=== PATIENT | male | born 1950 | race Caucasian/White ===

== ENCOUNTER 2023-07-29 12:26 | Emergency (ER) | payer MEDICARE, SELFPAY ==
--- NOTE | ~2023-07-29 | US_ITS ---
EXAMINATION: US venous doppler [facility] DATE: 07/29/2023 14:19 INDICATION: Left lower limb pain. TECHNIQUE: Grayscale ultrasound images without and with compression and Doppler ultrasound images of the left lower extremity veins were obtained. COMPARISON: None. FINDINGS: The visualized portions of left common femoral vein, profunda (deep) femoral vein, femoral vein, popl iteal vein, peroneal veins, posterior tibial veins, and greater saphenous vein outflow are patent. IMPRESSION: 1. No deep venous thrombosis. Reviewed, dictated and finalized at location E.
--- NOTE | ~2023-07-29 | XR_ITS ---
EXAMINATION: XR knee LT 3V DATE: 07/29/2023 13:38 INDICATION: Left knee pain. TECHNIQUE: 3 views of left knee were obtained. COMPARISON: None. FINDINGS: Bone alignment is normal. No fracture. There is mild tricompartmental osteoarthritis. No kn ee joint effusion. IMPRESSION: 1. Mild left knee osteoarthritis. Reviewed, dictated and finalized at location E.
[2023-07-29 12:27] VITALS: BP 125/75; PULSE 79; RESP 16; TEMP 36.4; O2SAT 100
[2023-07-29 13:30] VITALS: BP 128/68; PULSE 72; RESP 16; TEMP 36.8; O2SAT 98
[2023-07-29 14:30] VITALS: BP 120/76; PULSE 68; RESP 16; TEMP 36.6; O2SAT 100
--- NOTE | 2023-07-29 16:46 | ED.EXTPRO ---
HPI - Extremity Problem General Chief complaint: Extremity Problem,Nontraumatic Stated complaint: r/o dvt to LLQ Time Seen by Provider: 07/29/23 12:40 History of Present Illness HPI Narrative: Patient reports some pain to the back of his left thigh that extends down his knee, denies any recent injuries that he can think of, other than that recently he did mow the lawn for the 1st time in a while. He states that he had been on a car ride yesterday for about an hour when he got out of the car and tried to walk, the pain was quite severe. No significant pain when he at rest, but he does start having more pain when he is walking, though this pain does relieve itself after walking for a while. He is generally quite active. history of AFib not on blood thinners. Review of Systems Review of Systems: CONST: No fever. HEENT: No sore throat C/V: No chest pain RESP: No cough GI: no abdominal pain : No dysuria. M/S: Left leg pain SKIN: No rash. NEURO: [No headache or focal numbness or weakness] PSYCH: [No depression] Exam Narrative: EXAMINATION OF ORGAN SYSTEMS/BODY AREAS: Constitutional: Vital signs per nursing GENERAL:[No acute distress, non-toxic appearing.] HEAD: Normal with no signs of head trauma. EYES: EOMI, conjunctiva normal ENT: Hearing grossly intact LUNGS: Nonlabored breathing. HEART: [Regular rate and rhythm]. Strong bilateral DP pulses, with what appears to be good perfusion to both feet, legs are not cold nor hairless ABD: [Soft], [nontender to palpation] EXT: Normal painless range of motion; no significant swelling of either extremity or tenderness to palpation. SKIN: [No rashes or lesions.] NEURO: [Alert and oriented x 3. No gross focal sensory or strength deficits.] PSYCH: Normal affect Course Vital Signs Vital signs: Vital Signs Temperature 97.5 F L 07/29/23 12: Pulse Rate 79 07/29/23 12:27 Respiratory Rate 16 07/29/23 12:27 Blood Pressure 125/75 07/29/23 12:27 Pulse Oximetry 100 07/29/23 12: Temperature 97.9 F 07/29/23 14:30 Pulse Rate 68 07/29/23 14:30 Respiratory Rate 16 07/29/23 14:30 Blood Pressure 120/76 07/29/23 14:30 Pulse Oximetry 100 07/29/23 14:30 MDM - Extremity (Nontraumatic) MDM Narrative Medical decision making narrative: 73-year-old male presenting with pain to his posterior left leg, denies recent trauma, he is well-appearing, neurovascularly intact with good perfusion, no obvious swelling, I have lower concern for DVT or ischemic like given his very benign exam, DVT study performed does not show acute DVT, need x-ray without acute abnormality. I will have the patient follow-up with Orthopedics, I suspect possible muscle strain, and return for further issues. Patient agreeable to this plan as is his at bedside. Discharge Plan Discharge Clinical Impression: Acute leg pain Patient Disposition: Home, Self-Care Condition: Stable Instructions: Antibiotic Form, Leg Sprain (ED) Additional Instructions: Please follow-up with your primary care doctor or the orthopedic doctor, you can always return to the emergency room for any further issues. Follow-up/Referrals: Daryl Velarde MD [Physician] - 2 Days Harms,Chucky Alejandra M.D. [Primary Care Provider] -
== END 2023-07-29 15:04 | disposition home or self-care (01) ==
PROVIDERS: Emergency Provider Emergency Medicine; PCP Family Medicine
DX: M79.652 Pain in left thigh (principal); M25.562 Pain in left knee
CPT/HCPCS: 73562; 93971; 99284